=== PATIENT | female | born 1985 | race Caucasian/White ===

== ENCOUNTER 2017-01-16 10:27 | Outpatient (CLI) | payer BC ==
[~2017-01-16] VITALS: Ht 165.1 cm; Wt 77.2 kg
[2017-01-16 10:46] VITALS: Ht 165.1 cm; Wt 77.2 kg
[2017-01-16] MEDS ORDERED: PRENAT PO (10:47)
--- NOTE | 2017-01-16 11:51 | RADRPT ---
PROCEDURE: US OB CLINICAL INDICATION: LABOR TECHNIQUE: Multiple sonographic images of the pelvis were obtained. The images were reviewed on a PACS workstation. COMPARISON: None FINDINGS: The cervix is not well visualized. There is a single viable intrauterine gestation. Cardiac activity is present with 148 beats per minute. There is a vertex presentation. The placenta is anterior. There is no evidence for an abruption or placenta previa. There is a subjectively normal amount of amniotic fluid. Measurements were made in order to determine age. The results are as follows (cm): BPD =9.10 HC =32.11 AC =32.92 FL =7.28 Estimated gestational age by ultrasound of approximately 36 weeks, 6 days. The estimated date of delivery by ultrasound is 02/07/2017. Reported gestational age by LMP of approximately 38 weeks, 2 days. The reported date of delivery by LMP is 01/28/2017. EFW = 3058 grams (28th percentile) IMPRESSION: Single viable intrauterine gestation of approximately 36 weeks, 6 days . The estimated date of delivery is 02/07/2017 . Dating by ultrasound is within 10 days of dating by LMP. Cephalic presentation. Estimated weight is in the 28th percentile. RPTAT: EE Physician Brielle Date Time Electronically viewed and signed by Physician Brielle on 01/16/2017 11:51 /
--- NOTE | 2017-01-16 11:52 | RADRPT ---
PROCEDURE: US OB biophysical profile. CLINICAL INDICATION: Labor TECHNIQUE: Multiple sonographic images of the pelvis were obtained. The images were reviewed on a PACS workstation. COMPARISON: No prior studies are available for comparison. FINDINGS: There is a single viable intrauterine gestation. Cardiac activity is present with 150 beats per min [place]. There is a vertex presentation. The placenta is anterior. There is no evidence of placental abruption. There is a normal amount of amniotic fluid with an PAYTON = 11.9 cm. Biophysical profile: movement 2/2 tone 2/2. breathing 2/2 PAYTON 2/2 Total 06/11 RPTAT: AA . IMPRESSION: Normal biophysical profile. Normal PAYTON. Physician Brielle Date Time Electronically viewed and signed by Physician Brielle on 01/16/2017 11:52 /
== END 2017-01-16 13:30 | disposition home or self-care (01) ==
LOC: L-D 10:27 → OBT 10:27
PROVIDERS: ATTEND Obstetrics & Gynecology
DX: O26.893 Other specified pregnancy related conditions, third trimester (principal); Z3A.38 38 weeks gestation of pregnancy
CPT/HCPCS: 76815; 76818; Z7500; G0463

== ENCOUNTER 2017-01-16 21:32 | Inpatient (IN) | END 2017-01-18 14:10 | disposition home or self-care (01) | DRG 775 | DX: O69.81X0 Labor and delivery complicated by cord around neck, without compression, not applicable or unspecified (principal); Z37.0 Single live birth; Z3A.38 38 weeks gestation of pregnancy ==